=== PATIENT | male | born 1970 | race Two or more races ===

== ENCOUNTER 2018-08-31 10:06 | Day surgery (SDC) | payer BC ==
[2018-08-31] VITALS (8 sets, daily range): BP systolic 118–142; BP diastolic 67–83
[~2018-08-31] VITALS: Ht 172.7 cm; Wt 74.8 kg
--- NOTE | 2018-08-31 10:39 | Pre-Procedure Note/Attestation ---
Pre-Procedure Note/Attestation Complete Prior to Procedure Planned Procedure: not applicable Procedure Narrative: colonoscopy Indications for Procedure Pre-Operative Diagnosis: screening Attestation I attest that I discussed the nature of the procedure; its benefits; risks and complications; and alternatives (and the risks and benefits of such alternatives ), prior to the procedure, with the patient (or the patient's legal telesales representative). I attest that, if there was a reasonable possibility of needing a blood transfusion, the patient (or the patient's legal telesales representative) was given the [facility] of Health Services standardized written summary, pursuant to the [employer] [place] Blood Safety Act ([place] Health and Safety Code # 1645, as amended). I attest that I re-evaluated the patient just prior to the surgery and that there has been no change in the patient's H&P, except as documented below: Anish Gallardo MD Aug 31, 2018 10:39
--- NOTE | 2018-08-31 10:40 | Short Stay Surgery H&P ---
History of Present Illness History of Present Illness Chief Complaint screening HPI Jluis Baca is a 47 year old male who was admitted on for Colon Screening Patient History Allergies: Coded Allergies: No Known Allergies (Unverified , 08/28/18) PAST MEDICAL HISTORY: (1) BPH (benign prostatic hyperplasia) (2) HTN (hypertension) Review of Systems Cardiovascular: Reports: no symptoms Respiratory: Reports: no symptoms Skeletal: Reports: no symptoms Gastrointestinal: Reports: no symptoms Genitourinary: Reports: no symptoms Neurologic: Reports: no symptoms Endocrine: Reports: no symptoms Physical Exam Skin: normal HENT: normal Heart: normal Lungs: normal Abdomen: normal Extremities: normal Plan Plan of Care colonoscopy Attestation Are the patient's medical conditions optimized for surgery? Attestation Response: yes Anish Gallardo MD Aug 31, 2018 10:39
[2018-08-31] MEDS ORDERED: IBUPROFEN600 MG ORAL (10:51)
[2018-08-31] MEDS ORDERED: FLOMAX0.4 MG ORAL (10:51)
[2018-08-31] MEDS ORDERED: Propofol 200mg/20ml IV ONE (11:00)
[2018-08-31] MEDS ORDERED: Lidocaine 1% MPF 10mg/ml 5ml ONE (11:00)
[2018-08-31] MEDS ORDERED: fentaNYL 100 mcg/2 mL IV PRN (11:45)
[2018-08-31] MEDS ORDERED: DiphenhydrAMINE 50mg/ml Inj IVP PRN (11:45)
[2018-08-31] MEDS ORDERED: Atropine Inj 1mg/10ml Syr IV PRN (11:45)
[2018-08-31] MEDS ORDERED: Midazolam 2mg/2ml Inj IVP PRN (11:45)
--- NOTE | 2018-08-31 12:31 | Anethesia Preoperative Eval ---
Anesthesia Pre-op PMH/ROS General Date of Evaluation: Aug 31, 2018 Time of Evaluation: 10:53 Anesthesiologist: arvind ASA Score: ASA 3 Mallampati Score Class I : Soft palate, uvula, fauces, pillars visible Class II: Soft palate, uvula, fauces visible Class III: Soft palate, base of uvula visible Class IV: Only hard plate visible Mallampati Classification: Class II Surgeon: samira Diagnosis: colon screening Surgical Procedure: colonoscopy Anesthesia History: none Social History: smoking - nonsmoker Family History: no anesthesia problems Allergies: Coded Allergies: No Known Allergies (Unverified , 08/28/18) Medications: see eMAR Patient NPO?: Yes Past Medical History Cardiovascular: Reports: HTN Gastrointestinal/Genitourinary: Reports: other - bph Neurologic/Psychiatric: Reports: depression/anxiety Hematology/Immune: Reports: other - hiv Anesthesia Pre-op Phys. Exam Physician Exam Last Vital Signs Date Time Temp Pulse Resp B/P (MAP) Pulse Ox O2 Delivery O2 Flow Rate FiO2 08/31/18 11:54 62 20 121/76 100 Simple Mask 6 08/31/18 11:49 97.3 Constitutional: NAD Neurologic: CN 2-12 intact Cardiovascular: RRR Respiratory: CTA Gastrointestinal: S/NT/ND Airway Exam Mallampati Score: Class II MO: full Neck: flexible TMD: 2fb ROM: full Anesthesia Pre-op A/P Risk Assessment & Plan Assessment: asa3 Plan: mac Status Change Before Surgery: No Pre-Antibiotics Drug: Cuca Florian MD Aug 31, 2018 12:31
--- NOTE | 2018-08-31 12:32 | Immediate Post-Op Evaluation ---
Immediate Post-Op Evalulation Immediate Post-Op Evalulation Procedure: colonoscopy w/bx Date of Evaluation: Aug 31, 2018 Time of Evaluation: 12:01 IV Fluids: 250ml 0.9ns Blood Products: none Estimated Blood Loss: negligible Blood Pressure Systolic: 118 Blood Pressure Diastolic: 73 Pulse Rate: 73 Respiratory Rate: 18 O2 Sat by Pulse Oximetry: 100 Temperature (Fahrenheit): 97.3 Pain Score (1-10): 0 Nausea: No Vomiting: No Complications none Patient Status: awake, reacts, patent Hydration Status: adequate Drug: Cuca Florian MD Aug 31, 2018 12:32
--- NOTE | 2018-08-31 12:34 | 48 Hour Post Anesthesia Eval ---
Post Anesthesia Evaluation Procedure: colonoscopy w/bx Date of Evaluation: Aug 31, 2018 Time of Evaluation: 12:03 Blood Pressure Systolic: 121 0: 76 Pulse Rate: 62 Respiratory Rate: 18 Temperature (Fahrenheit): 97.3 O2 Sat by Pulse Oximetry: 100 Airway: patent Nausea: No Vomiting: No Pain Intensity: 0 Hydration Status: adequate Cardiopulmonary Status: stable Mental Status/LOC: patient returned to baseline Post-Anesthesia Complications: none Follow-up care needed: N/A Cuca Myrick MD Aug 31, 2018 12:34
--- NOTE | 2018-08-31 13:09 | Endoscopy Procedure Note ---
Endoscopy Procedure Note General Indication for Procedure: screening Procedures Performed: colonoscopy Operative Findings/Diagnosis: polyp Specimen: yes Pt Tolerated Procedure Well: Yes Estimated Blood Loss: none Anesthesia Anesthesiologist: jesús Anesthesia: MAC Inserted Devices Implant(s) used?: No Quality Quality of Bowel Preparation: Good Did scope reach the cecum?: Yes Was there any complications?: No GI Core Measures 50 yrs or older w/o bx or poly: No 10yrs. F/U recommended: Yes If not recommended, why?: Above average risk 18 years or older w/prev. colo: No Anish Gallardo MD Aug 31, 2018 13:09
--- NOTE | 2018-08-31 19:15 | Procedure Note ---
DATE OF PROCEDURE: 08/31/2018 SURGEON: Anish Gallardo M.D. PROCEDURE: Colonoscopy with biopsy. ANESTHESIA: Per Dr. Vigil. INSTRUMENT: Olympus adult flexible colonoscope. INDICATIONS: Screening colonoscopy. REASON FOR PROCEDURE: The procedure, risks, benefits, and possible consequences, including hemorrhage, aspiration, perforation and infection, and alternative treatments, were explained to the patient/legal guardian by Dr. Anish Gallardo and the patient/legal guardian understood and accepted these risks. PROCEDURE IN DETAIL: After informed consent was obtained and the patient was adequately sedated, first rectal exam was performed, which was normal. Then, the scope was advanced from the rectum into the cecum documented by appendiceal orifice, ileocecal valve, and right upper quadrant palpation. Quality of prep was good. The patient had few hyperplastic looking polyps in the descending colon, which was biopsied. Random biopsy from the rectum was also obtained because the rectal mucosa was somewhat nodular. The rest of the examination was grossly within normal limits. Retroflexion of rectum showed evidence of few nonbleeding internal hemorrhoids. SUMMARY OF FINDINGS: 1. Colonic polyp in the descending colon status post biopsy. See above for details. 2. Internal hemorrhoids. RECOMMENDATIONS: Follow up pathology and treat accordingly. Anish Gallardo M.D. DR: SUNDAY JOB#: [id number] CC:
== END 2018-08-31 13:20 | disposition home or self-care (01) ==
LOC: GAS 10:06
DX: Z12.11 Encounter for screening for malignant neoplasm of colon (principal); K64.8 Other hemorrhoids; K63.5 Polyp of colon; I10 Essential (primary) hypertension; F32.9 Major depressive disorder, single episode, unspecified; F41.9 Anxiety disorder, unspecified; B20 Human immunodeficiency virus [HIV] disease
CPT/HCPCS: 45380; J2704; 94003; 94150

== ENCOUNTER 2019-10-13 08:01 | Day surgery (SDC) | payer BC ==
[~2019-10-13] VITALS: Ht 172.7 cm; Wt 70.8 kg
[2019-10-13] VITALS (9 sets, daily range): BP systolic 120–150; BP diastolic 60–85
[~2019-10-13 08:01] MED LIST: FLOMAX0.4 MG ORAL; IBUPROFEN600 MG ORAL
[2019-10-13] MEDS ORDERED: Vit D PO (08:44)
[2019-10-13] MEDS ORDERED: IRON325 M1 PO (08:45)
[2019-10-13] MEDS ORDERED: FLOMAX0.4 MG ORAL (08:46)
--- NOTE | 2019-10-13 09:42 | Pre-Procedure Note/Attestation ---
Pre-Procedure Note/Attestation Complete Prior to Procedure Planned Procedure: not applicable Procedure Narrative: egd Indications for Procedure Pre-Operative Diagnosis: gerd Attestation I attest that I discussed the nature of the procedure; its benefits; risks and complications; and alternatives (and the risks and benefits of such alternatives ), prior to the procedure, with the patient (or the patient's legal customer loyalty representative). I attest that, if there was a reasonable possibility of needing a blood transfusion, the patient (or the patient's legal customer loyalty representative) was given the [facility] of Health Services standardized written summary, pursuant to the Alexandre [place] Blood Safety Act ([place] Health and Safety Code # 1645, as amended). I attest that I re-evaluated the patient just prior to the surgery and that there has been no change in the patient's H&P, except as documented below: Anish Gallardo MD Oct 13, 2019 09:42
--- NOTE | 2019-10-13 09:45 | Short Stay Surgery H&P ---
History of Present Illness History of Present Illness Chief Complaint gerd HPI Jluis Baca is a 48 year old male who was admitted on for Screening/ Gerd Medication History Scheduled Ferrous Sulfate (Iron), 325 MG PO DAILY, (Reported) Tamsulosin HCl (Flomax), 0.4 MG ORAL DAILY, (Reported) [Vit D], 1 TAB PO DAILY, (Reported) Review of Systems Cardiovascular: Reports: no symptoms Respiratory: Reports: no symptoms Skeletal: Reports: no symptoms Gastrointestinal: Reports: no symptoms Genitourinary: Reports: no symptoms Neurologic: Reports: no symptoms Physical Exam Vital Signs Last Vital Signs Date Time Temp Pulse Resp B/P (MAP) Pulse Ox O2 Delivery O2 Flow Rate FiO2 10/13/19 09:03 Room Air 10/13/19 08:58 98.7 87 18 150/85 100 Skin: normal HENT: normal Heart: normal Lungs: normal Abdomen: normal Extremities: normal Plan Plan of Care egd Attestation Are the patient's medical conditions optimized for surgery? Attestation Response: yes Anish Gallardo MD Oct 13, 2019 09:45
[2019-10-13] MEDS ORDERED: LR 1000ml ONE (10:00)
[2019-10-13] MEDS ORDERED: Lidocaine 1% MPF 10mg/ml 5ml ONE (10:00)
--- NOTE | 2019-10-13 10:30 | Anethesia Preoperative Eval ---
Anesthesia Pre-op PMH/ROS General Date of Evaluation: Oct 13, 2019 Time of Evaluation: 10:05 Anesthesiologist: henok ASA Score: ASA 3 Mallampati Score Class I : Soft palate, uvula, fauces, pillars visible Class II: Soft palate, uvula, fauces visible Class III: Soft palate, base of uvula visible Class IV: Only hard plate visible Mallampati Classification: Class II Surgeon: samira Diagnosis: GERD Surgical Procedure: EGD Anesthesia History: none Family History: no anesthesia problems Allergies: Coded Allergies: No Known Allergies (Unverified , 10/13/19) Medications: see eMAR Patient NPO?: Yes NPO Date: Oct 13, 2019 NPO Time: 00:01 Past Medical History Cardiovascular: Reports: HTN Gastrointestinal/Genitourinary: Reports: GERD Neurologic/Psychiatric: Denies: dementia, CVA, depression/anxiety, TIA, other Endocrine: Denies: DM, hypothyroidism, steroids, other HEENT: Denies: cataract (L), cataract (R), glaucoma, CHILKAT (L), CHILKAT (R), other Hematology/Immune: Denies: anemia, DVT, bleeding disorder, other Musculoskeletal/Integumentary: Denies: OA, RA, DJD, DDD, edema, other Other: other - HIV PSxH Narrative: colonoscopy Anesthesia Pre-op Phys. Exam Physician Exam Last Vital Signs Date Time Temp Pulse Resp B/P (MAP) Pulse Ox O2 Delivery O2 Flow Rate FiO2 10/13/19 09:03 Room Air 10/13/19 08:58 98.7 87 18 150/85 100 Constitutional: NAD Neurologic: CN 2-12 intact Cardiovascular: RRR Respiratory: CTA Gastrointestinal: S/NT/ND Airway Exam Mallampati Classification 2 Mallampati Score: Class II MO: full ROM: full Dentures: no upper, no lower Anesthesia Pre-op A/P Studies Pre-op Studies: EKG - SR Risk Assessment & Plan Plan: General Status Change Before Surgery: No Pre-Antibiotics Drug: none Justyna Suresh CRNA Oct 13, 2019 10:30
--- NOTE | 2019-10-13 10:32 | Immediate Post-Op Evaluation ---
Immediate Post-Op Evalulation Immediate Post-Op Evalulation Procedure: EGD Date of Evaluation: Oct 13, 2019 Time of Evaluation: 10:31 IV Fluids: 300 Blood Pressure Systolic: 125 Blood Pressure Diastolic: 80 Pulse Rate: 64 Respiratory Rate: 14 O2 Sat by Pulse Oximetry: 99 Temperature (Fahrenheit): 98.1 Nausea: No Vomiting: No Patient Status: awake, reacts, patent Hydration Status: adequate Drug: none Justyna Suresh CRNA Oct 13, 2019 10:32
[2019-10-13] MEDS ORDERED: fentaNYL 100 mcg/2 mL IV PRN (10:45)
--- NOTE | 2019-10-13 13:28 | 48 Hour Post Anesthesia Eval ---
Post Anesthesia Evaluation Procedure: EGD Date of Evaluation: Oct 13, 2019 Time of Evaluation: 13:27 Blood Pressure Systolic: 125 0: 75 Pulse Rate: 70 Respiratory Rate: 14 O2 Sat by Pulse Oximetry: 98 Airway: patent Nausea: No Vomiting: No Hydration Status: adequate Cardiopulmonary Status: stable Mental Status/LOC: patient returned to baseline Post-Anesthesia Complications: none Follow-up care needed: N/A Justyna Suresh CRNA Oct 13, 2019 13:28
--- NOTE | 2019-10-13 17:15 | Procedure Note ---
DATE OF PROCEDURE: 10/13/2019 SURGEON: Anish Gallardo MD. PROCEDURE: Upper endoscopy with biopsy. ANESTHESIA: Per ESCALATOR INSTALLER, Justyna Tarrillion. INSTRUMENT: Olympus adult flexible upper endoscope. INDICATION: Anemia. REASON FOR PROCEDURE: The procedure, risks, benefits, and possible consequences, including hemorrhage, aspiration, perforation and infection, and alternative treatments, were explained to the patient/legal guardian by Dr. Anish Gallardo and the patient/legal guardian understood and accepted these risks. PROCEDURE IN DETAIL: After informed consent was obtained and the patient was adequately sedated, Olympus upper endoscope was advanced from mouth into the second portion of the duodenum and retroflexion was performed in the stomach. The patient has evidence of one or two erosions in the antrum and some antral gastritis. Biopsy from this area was obtained for evaluation of H. pylori infection. Otherwise, the rest of upper endoscopic examination grossly looked within normal limits. There was no evidence of any ulcerations. No gastric or esophageal varices at this time. SUMMARY OF FINDINGS: Antral gastritis with one or two erosions, status post biopsy. RECOMMENDATIONS: Follow biopsy results and treat accordingly. The patient to come to the office for further workup of anemia. The patient might benefit from capsule endoscopy if the patient has evidence of GI blood loss. Anish Gallardo M.D. DR: VALERIA JOB#: [id number] CC:
--- NOTE | 2019-10-15 14:43 | Endoscopy Procedure Note ---
Endoscopy Procedure Note General Indication for Procedure: anemia Procedures Performed: EGD Operative Findings/Diagnosis: gastritis Specimen: yes Pt Tolerated Procedure Well: Yes Estimated Blood Loss: none Anesthesia Anesthesiologist: tami Anesthesia: MAC Inserted Devices Implant(s) used?: No GI Core Measures 50 yrs or older w/o bx or poly: Not Applicable 10yrs. F/U recommended: Not Applicable Anish Gallardo MD Oct 15, 2019 14:43
== END 2019-10-13 11:35 | disposition home or self-care (01) ==
LOC: MERGE 08:01 → GAS 08:01
DX: D64.9 Anemia, unspecified (principal); K29.70 Gastritis, unspecified, without bleeding; I10 Essential (primary) hypertension; K21.9 Gastro-esophageal reflux disease without esophagitis; B20 Human immunodeficiency virus [HIV] disease
CPT/HCPCS: 43239; 94003; J2704; J7120; 94150

== ENCOUNTER → 2020-01-26 | Outpatient (CLI) | payer BC ==
[~2020-01-26] MED LIST changes: +IRON325 M1 PO; +Vit D PO
== END | disposition home or self-care (01) ==
LOC: PAN 13:48
DX: Z00.00 Encounter for general adult medical examination without abnormal findings (principal); B96.81 Helicobacter pylori [H. pylori] as the cause of diseases classified elsewhere
CPT/HCPCS: 83013; 83014